=== PATIENT | male | born 1955 | race Caucasian/White ===

== ENCOUNTER → 2017-06-28 | Outpatient (CLI) | payer BC ==
[~2017-06-28] VITALS: Ht 175.3 cm; Wt 250.0 kg
[2017-06-28] VITALS (7 sets, daily range): BP systolic 108–189; BP diastolic 52–86; PULSE 88–197
[~2017-06-28] MED LIST: ASPIRIN 32325 MG/TAB PO; COZAAR100 MG PO; FLOMAX 0.40.4 MG/CAP PO; HCTZ 25MG TAB25 MG PO; LEXAPRO 10MG10 MG PO; MULTI VITAMINS1 TAB PO; TAMBOCOR50 MG PO; TOPROL XL 25MG25 MG PO; URSO250 MG PO
== END ==
LOC: COL.CARD 09:42
DX: I48.0 Paroxysmal atrial fibrillation (principal); I49.3 Ventricular premature depolarization; E66.01 Morbid (severe) obesity due to excess calories; Z68.45 Body mass index [BMI] 70 or greater, adult
CPT/HCPCS: J1250

== ENCOUNTER 2017-08-21 07:46 | Inpatient (IN) | payer BC ==
[2017-08-21] VITALS (9 sets, daily range): BP systolic 120–149; BP diastolic 57–88; PULSE 63–96; TEMP 97.8–98.4
[~2017-08-21] VITALS: Ht 175.4 cm; Wt 250.0 kg
[~2017-08-21 07:46] MED LIST changes: -ASPIRIN 32325 MG/TAB PO; +ASPIRIN 81M81 MG/TA2 PO
[2017-08-21 08:28] LABS: POTASSIUM 3.7 mmol/L (3.4-5.0)
[2017-08-21] MEDS ORDERED: ELIQUIS 5MG PO (08:32)
[2017-08-21] MEDS ORDERED: LUNESTA3 MG PO (08:34)
[2017-08-21 08:35] LABS: INR 1.4 (0.8-3.0); PROTHROMBIN TIME 16.6 SECONDS (9.7-12.8)
[2017-08-21 09:02] LABS: THYROID STIMULATING HORMONE 2.85 uIU/mL (0.465-4.680)
[2017-08-22 03:39] VITALS: BP 134/71; PULSE 64; TEMP 97.7
[2017-08-22 08:15] VITALS: BP 130/65; PULSE 63; TEMP 97.9
[2017-08-22 11:08] LABS: HEMATOCRIT 43.7 % (42.0-52.0); HEMOGLOBIN 14.1 g/dl (13.5-18.0); MEAN CELL VOLUME 88 fl (80.0-100.0); MEAN CORPUSCULAR HEMOGLOBIN 28 pg (27.0-31.0); MEAN CORPUSCULAR HGB CONC 32 g/dl (33.0-37.0); MEAN PLATELET VOLUME 9.6 fl (7.4-10.4); PLATELET COUNT 253 K/mm3 (130-400); RED BLOOD COUNT 4.99 M/mm3 (4.20-5.60); REDCELL DISTRIBUTION WIDTH-CV 13.7 % (11.5-14.5)
[2017-08-22 11:16] LABS: BILIRUBIN,TOTAL 0.7 mg/dL (0.0-1.0); CALCIUM 9.1 mg/dL (8.4-10.2); CREATININE, serum 0.96 mg/dL (0.66-1.25); POTASSIUM 3.5 mmol/L (3.4-5.0); TOTAL PROTEIN 6.9 gm/dL (6.4-8.2)
[2017-08-22 11:17] VITALS: BP 140/75; PULSE 67; TEMP 97.4
[2017-08-22 16:35] VITALS: BP 128/67; PULSE 62; TEMP 97.9
[2017-08-22 19:32] VITALS: BP 143/76; PULSE 67; TEMP 97.9
[2017-08-23] VITALS: BP 136/64; PULSE 69; TEMP 98.2
[2017-08-23 03:41] VITALS: BP 126/66; PULSE 65; TEMP 97.8
[2017-08-23 07:56] VITALS: BP 146/80; PULSE 64; TEMP 97.7
[2017-08-23] MEDS ORDERED: BETAPACE 120MG120 MG PO (11:15)
== END 2017-08-23 14:17 | disposition home or self-care (01) | DRG 310 ==
LOC: COL.CAR 07:46 → MEDICAL 12:15 → COL.CAR 12:16 → MEDICAL 18:00
PROVIDERS: Internal Medicine Cardiovascular Disease
PROC: 5A2204Z Restoration of Cardiac Rhythm, Single (ICD-10-PCS; principal; 2017-08-21)
DX: I48.0 Paroxysmal atrial fibrillation (principal); I10 Essential (primary) hypertension; G47.33 Obstructive sleep apnea (adult) (pediatric); Z91.041 Radiographic dye allergy status

== ENCOUNTER 2017-10-09 08:11 | Day surgery (SDC) | payer BC ==
[~2017-10-09] VITALS: Ht 175.3 cm; Wt 260.9 kg
[~2017-10-09 08:11] MED LIST changes: +BETAPACE 120MG120 MG PO; +ELIQUIS 5MG PO; +LUNESTA3 MG PO
[2017-10-09 09:07] LABS: POTASSIUM 3.4 mmol/L (3.4-5.0)
[2017-10-09 09:09] LABS: INR 1.3 (0.8-3.0); PROTHROMBIN TIME 15.2 SECONDS (9.7-12.8)
[2017-10-09 09:27] VITALS: BP 157/90; PULSE 86; TEMP 98.1
[2017-10-09 09:42] LABS: THYROID STIMULATING HORMONE 2.81 uIU/mL (0.465-4.680)
[2017-10-09 09:49] VITALS: BP 153/98; PULSE 65
[2017-10-09] MEDS ORDERED: BETAPACE 120MG120 MG PO (09:49)
[2017-10-09 09:50] VITALS: BP 153/98; PULSE 66
[2017-10-09 10:00] VITALS: BP 170/103; PULSE 64
[2017-10-09 10:15] VITALS: BP 145/74; PULSE 67
[2017-10-09 10:30] VITALS: BP 146/69; PULSE 67
== END 2017-10-09 11:45 | disposition home or self-care (01) ==
LOC: COL.CAR 08:11
PROVIDERS: Internal Medicine Cardiovascular Disease
DX: I48.0 Paroxysmal atrial fibrillation (principal); R00.2 Palpitations; Z79.01 Long term (current) use of anticoagulants; Z79.82 Long term (current) use of aspirin; E66.01 Morbid (severe) obesity due to excess calories; I10 Essential (primary) hypertension; G47.33 Obstructive sleep apnea (adult) (pediatric); K21.9 Gastro-esophageal reflux disease without esophagitis
CPT/HCPCS: J0330; J2704; J7030